=== PATIENT | male | born 1990 | race African-American/Black ===

== ENCOUNTER 2024-10-17 13:57 | Emergency (ER) | payer MEDICAID ==
[~2024-10-17] VITALS: Ht 172.7 cm; Wt 149.7 kg
[2024-10-17 13:58] VITALS: BP 172/99; PULSE 80; RESP 16; TEMP 37.1; O2SAT 98; O2SAT 99
[2024-10-17] MEDS: TETANUS, DIPHTHERIA, PERTUSSIS VAC/PF 0.5ML (>10YR OLD) IM ONE (16:13)
[2024-10-17 16:31] LABS: EOSINOPHILS % 1.1 % (0.0-5.0); HEMATOCRIT. 42.3 % (42.0-52.0); HEMOGLOBIN. 13.8 g/dL (14.0-18.0); LYMPHOCYTES % 30.1 % (20.0-50.0); MEAN CORPUSCULAR HEMOGLOBIN 27.9 pg (28.0-32.0); MEAN CORPUSCULAR HGB CONC 32.7 g/dL (31.0-37.0); MEAN CORPUSCULAR VOLUME 85.3 fL (80.0-94.0); MEAN PLATELET VOLUME 7.9 fl (7.4-10.4); MONOCYTES % 8.4 % (2.0-8.0); NEUTROPHILS % 59.4 % (40.0-76.0); PLATELET 347 x1000/uL (130-400); RED BLOOD CELL COUNT 4.96 mill/uL (4.7-6.1); RED CELL DISTRIBUTION WIDTH 14.5 % (11.6-14.6); WHITE BLOOD COUNT 9.7 x1000/uL (4.5-11.0)
[2024-10-17 16:34] LABS: CHLORIDE 108 mEq/L (98-107); POTASSIUM 4.1 mEq/L (3.5-5.1); SODIUM 141 mEq/L (136-145)
[2024-10-17 16:35] LABS: CARBON DIOXIDE 30 mEq/L (21-32)
[2024-10-17 16:36] LABS: CALCIUM 9.1 mg/dL (8.7-10.4)
[2024-10-17 16:40] LABS: GLUCOSE 97 mg/dL (70-105); UREA NITROGEN BLOOD 8 mg/dL (9-23)
[2024-10-17] MEDS ORDERED: SULF1TAB47 MT (16:41)
[2024-10-17] MEDS ORDERED: CEPH500T MT (16:41)
== END 2024-10-17 16:53 | disposition home or self-care (01) ==
LOC: ER 13:57
DX: S41.112A Laceration without foreign body of left upper arm, initial encounter (principal); W26.0XXA Contact with knife, initial encounter; Y93.89 Activity, other specified; Y92.89 Other specified places as the place of occurrence of the external cause; Y99.8 Other external cause status; I10 Essential (primary) hypertension
CPT/HCPCS: 36415; 80048; 85025; 90471; 90715; 99283